=== PATIENT | male | born 1950 | race Caucasian/White ===

== ENCOUNTER → 2020-04-28 | Outpatient (CLI) | payer MEDICARE, OTHER ==
[~2020-04-28] MED LIST: ASPIRIN81 M1 PO; B12 PO; CLOPIDOGREL75 MG PO; CRESTOR40 MG PO; FISH OIL PO; IMDUR SA30 MG PO; ISOSORBIDE MONO30 M1 PO; METOPROLOL50 MG PO; MULTIVITAMIN1 CTB PO; PRILOSEC20 M1 PO; PROSCAR5 M1 PO; TAMSULOSIN HCL0.4 MG PO; VITAMIN C500 M5 PO; VITAMIN D1000 IU PO; [UNRECOGNIZED DRUG - CODE] PO
== END | disposition home or self-care (01) ==
LOC: CARD 04-21 07:00
PROVIDERS: ATTEND Internal Medicine Cardiovascular Disease
DX: I20.9 Angina pectoris, unspecified (principal)

== ENCOUNTER → 2024-07-18 | Outpatient (CLI) | payer MEDICARE, OTHER ==
[~2024-07-18] MED LIST changes: +HYDR25T PO; +LOPRESSOR50 M1 PO; +VALSARTAN-HCTZ1 EACH PO; +ZETIA10 MG PO
== END | disposition home or self-care (01) ==
LOC: CARD 13:58
PROVIDERS: ATTEND Internal Medicine Cardiovascular Disease
DX: I25.10 Atherosclerotic heart disease of native coronary artery without angina pectoris (principal)

== ENCOUNTER → 2025-03-04 | Outpatient (CLI) | payer MEDICARE, OTHER ==
[~2025-03-04] MED LIST changes: +MELOXICAM15 MG PO; +Regadenoson 0.4 MG/5 ML SYR IV ONE; +Technetium Tc 99M Tetrofosmi 0.23 MG KIT IJ SCH
== END | disposition home or self-care (01) ==
LOC: CARD 01:52
PROVIDERS: ATTEND Internal Medicine Cardiovascular Disease
DX: I25.118 Atherosclerotic heart disease of native coronary artery with other forms of angina pectoris (principal)